=== PATIENT | female | born 1945 | race Caucasian/White ===

== ENCOUNTER → 2019-10-06 | Outpatient (CLI) | payer MEDICARE, OTHER ==
[2014-01-27 16:32] VITALS: BP 144/65
[~2019-10-06] MED LIST: ATORVASTATIN CA80 MG PO; LEVO50TA5 PO; LISI-130 PO; LISI10TA2 PO; LORA10TA3 PO
--- NOTE | 2019-10-06 09:30 | KCIC ---
AP view of the pelvis Clinical indications: Evaluation for foreign body in pelvic region. FINDINGS: There is an IUD within the superior right side of the pelvis which given it's position may be displaced outside of the uterus. There are 2 small surgical clips in the lower pelvis. Mild fecal retention is seen within the colon and rectosigmoid region. No dilatation of large or small bowel is seen. The osseous structures are intact. IMPRESSION: Displaced IUD. Note-I notified technologist Madyson at 9:26 AM on October 06, 2019 and she will tell the patient that the IUD is displaced outside the uterus and she should follow-up with her primary care physician. Electronically signed by: Raphael Hollis MD (10/06/2019 9:27 AM) [id number]
== END | disposition home or self-care (01) ==
LOC: KCIC MRI 08:35
PROVIDERS: ATTEND Radiology Diagnostic Radiology
DX: S30.850A Superficial foreign body of lower back and pelvis, initial encounter (principal); T83.32XA Displacement of intrauterine contraceptive device, initial encounter; K59.09 Other constipation; X58.XXXA Exposure to other specified factors, initial encounter; Y93.89 Activity, other specified; Y92.89 Other specified places as the place of occurrence of the external cause; Y99.8 Other external cause status
CPT/HCPCS: 72170